=== PATIENT | female | born 1980 | race Caucasian/White ===

== ENCOUNTER 2016-11-14 23:29 | Emergency (ER) | payer MEDICAID ==
[2016-11-15 00:05] VITALS: BP 126/83
[2016-11-15] MEDS ORDERED: CIPROFLOXACIN HCL/DEXAMETH OTIC DROP 7.5 ML AS ONE (01:53)
[2016-11-15] MEDS ORDERED: LIDOCAINE 2% JELLY 5 ML TUBE TOP ONE (01:54)
[2016-11-15] MEDS ORDERED: AZITHROMYCIN 250 MG TABLET PO ONE (01:54)
[2016-11-15] MEDS ORDERED: HYDROCODONE/ACETAMINOPHEN 5-325 MG 6 TAB/DSPK PO PRN (01:56)
--- NOTE | 2016-11-15 01:58 | ER Document Report ---
ED General - General Chief Complaint: Ear Pain Stated Complaint: LEFT EAR PAIN Time Seen by Provider: 11/15/16 00:50 Notes: Patient is a 36-year-old female who presents with 2 days of severe left ear pain. States that she has been trying [id number] medications without any improvement of her pain. States she has had similar symptoms in the past with otitis externa. Described as a severe, constant, throbbing pain. Nothing improves or worsens the pain. She has not seen a primary care doctor regarding today's concerns. Patient states that she feels she may have had a fever but has not recorded this at home. Denies any additional associated constitutional symptoms. TRAVEL OUTSIDE OF THE [place] IN LAST 30 DAYS: No - Related Data Allergies/Adverse Reactions: amoxicillin [Amoxicillin] Allergy (Verified 10/09/15 21:12) Bronchospasm Penicillins Allergy (Verified 10/09/15 21:12) Past Medical History - General Information source: Patient - Social History Smoking Status: Current Every Day Smoker Frequency of alcohol use: Occasional Drug Abuse: None Family History: Reviewed & Not Pertinent, Other - adopted unsure of history Patient has suicidal ideation: No Patient has homicidal ideation: No Pulmonary Medical History: Reports: Hx Asthma Neurological Medical History: Reports: Hx Migraine Renal/ Medical History: Denies: Hx Peritoneal Dialysis GI Medical History: Reports: Hx Gastroesophageal Reflux Disease Musculoskeltal Medical History: Reports Hx Arthritis Skin Medical History: Reports Hx Cellulitis - multiple abscesses Psychiatric Medical History: Reports: Hx Anxiety - panic attacks Traumatic Medical History: Reports: Hx Fractures - ankle and toes Past Surgical History: Reports: Hx Cholecystectomy, Hx Orthopedic Surgery - LEFT ANKLE REPAIR, Hx Tubal Ligation - Immunizations Immunizations up to date: Yes Hx Diphtheria, Pertussis, Tetanus Vaccination: Yes Hx Pneumococcal Vaccination: 01/13/12 Review of Systems - Review of Systems Notes: Constitutional: Negative for fever. HENT: Positive for left ear pain Eyes: Negative for visual changes. Cardiovascular: Negative for chest pain. Respiratory: Negative for shortness of breath. Gastrointestinal: Negative for abdominal pain, vomiting or diarrhea. Genitourinary: Negative for dysuria. Musculoskeletal: Negative for back pain. Skin: Negative for rash. Neurological: Negative for headaches, weakness or numbness. 10 point ROS negative except as marked above and in HPI. Physical Exam - Vital signs Vitals: Temp Pulse Resp BP Pulse Ox 99.2 F 114 H 16 126/83 H 98 11/15/16 00:05 11/15/16 00:05 11/15/16 00:05 11/15/16 00:05 11/15/16 00:05 Interpretation: Tachycardic Notes: PHYSICAL EXAMINATION: GENERAL: Appears to be in significant pain, holding her left ear HEAD: Atraumatic, normocephalic. EYES: sclera anicteric, conjunctiva are normal. ENT: Moist mucous membranes. Purulent expression in the external canal of the left ear precludes visualization of the tympanic membrane. No pain over palpation of the mastoid. Right TM clear. NECK: Normal range of motion LUNGS: Normal work of breathing HEART: 2+ radial pulses bilaterally EXTREMITIES: no pitting or edema. No cyanosis. NEUROLOGICAL: No focal neurological deficits. Moves all extremities spontaneously and on command. PSYCH: Normal mood, normal affect. SKIN: Warm, Dry, normal turgor, no rashes or lesions noted. Course - Re-evaluation Re-evalutation: 11/15/16 01:55 Patient presents with signs and symptoms consistent with an acute otitis externa , pus visibly seen in the external ear canal. There is no pain over the mastoid. She is otherwise nontoxic in appearance, vitals within normal limits, no acute distress. Will start on Ciprodex drops as well as oral azithromycin as patient is penicillin allergic. At this time will discharge with return precautions and follow-up recommendations. Verbal discharge instructions given a the bedside and opportunity for questions given. Medication warnings reviewed. Patient is in agreement with this plan and has verbalized understanding of return precautions and the need for primary care follow-up in the next 24-72 hours. - Vital Signs Vital signs: Temp Pulse Resp BP Pulse Ox 99.2 F 113 H 16 126/83 H 98 11/15/16 00:06 11/15/16 00:06 11/15/16 00:06 11/15/16 00:06 11/15/16 00:06 Discharge - Discharge Clinical Impression: Left otitis externa Qualifiers: Otitis externa type: unspecified type Chronicity: acute Qualified Code(s): H60.502 - Unspecified acute noninfective otitis externa, left ear Condition: Good Disposition: HOME, SELF-CARE Additional Instructions: Please place 2 drops of the Ciprodex solution 3 times daily anterior left ear for the next 7 days. Take azithromycin 250 mg daily for the next 4 days. You may use the viscous lidocaine that she was sent home with as needed for pain. Return if you develop worsening pain, pass out, develop weakness, numbness, confusion, or any other symptoms that are worrisome to you. Prescriptions: Azithromycin 250 mg PO DAILY #4 tablet Referrals: GISELE LEE MD [Primary Care Provider] - Follow up as needed
== END 2016-11-15 02:22 | disposition home or self-care (01) ==
LOC: ER 23:29
DX: H60.502 Unspecified acute noninfective otitis externa, left ear (principal); H92.02 Otalgia, left ear; F17.200 Nicotine dependence, unspecified, uncomplicated
CPT/HCPCS: 99282; Q0144; J3490 ×2

== ENCOUNTER 2017-04-06 23:55 | Emergency (ER) | payer MEDICAID ==
[2017-04-07] MEDS ORDERED: CLINDAMYCIN HCL 150 MG CAPSULE PO ONE (00:43)
[2017-04-07] MEDS ORDERED: LIDOCAINE 2% VISCOUS SOLN 20 ML UDCUP PO ONE (00:44)
[2017-04-07] MEDS ORDERED: IBUPROFEN 800 MG TABLET PO ONE (00:44)
--- NOTE | 2017-04-07 00:46 | ER Document Report ---
ED Oral Problem - General Chief Complaint: Toothache Stated Complaint: TOOTHACHE Time Seen by Provider: 04/07/17 00:29 Mode of Arrival: Ambulatory Information source: Patient Notes: 36-year-old female presents to ED for complaint of dental pain to the upper right gums. Above the tooth #5-8. TRAVEL OUTSIDE OF THE [place] IN LAST 30 DAYS: No - HPI Patient complains to provider of: Toothache Onset: Other - 3 days Quality of pain: Achy, Throbbing Severity: Moderate Pain Level: 3 Associated symptoms: Toothache, Other - Pain and swelling in the gums also Worsened by: Nothing Similar symptoms previously: Yes Recently seen / treated by doctor/dentist: No - Related Data Allergies/Adverse Reactions: amoxicillin [Amoxicillin] Allergy (Verified 10/09/15 21:12) Bronchospasm Penicillins Allergy (Verified 10/09/15 21:12) Past Medical History - General Information source: Patient - Social History Smoking Status: Current Some Day Smoker - 2-3 per week Smoking Education Provided: Yes - 3 min Frequency of alcohol use: Rare Drug Abuse: None Lives with: Family Family History: Arthritis, Other - adopted unsure of history states she knows that they have arthritis and that is all she knows Patient has suicidal ideation: No Patient has homicidal ideation: No - Past Medical History Cardiac Medical History: Reports: None Pulmonary Medical History: Reports: Hx Asthma EENT Medical History: Reports: None Neurological Medical History: Reports: Hx Migraine Endocrine Medical History: Reports: None Renal/ Medical History: Reports: None Malignancy Medical History: Reports: None GI Medical History: Reports: Hx Gastroesophageal Reflux Disease Musculoskeltal Medical History: Reports Hx Arthritis Skin Medical History: Reports Hx Cellulitis - multiple abscesses Psychiatric Medical History: Reports: Hx Anxiety - panic attacks Traumatic Medical History: Reports: Hx Fractures - ankle and toes Infectious Medical History: Reports: None Past Surgical History: Reports: Hx Cholecystectomy, Hx Orthopedic Surgery - LEFT ANKLE REPAIR, Hx Tubal Ligation - Immunizations Immunizations up to date: Yes Hx Diphtheria, Pertussis, Tetanus Vaccination: Yes Hx Pneumococcal Vaccination: 01/13/12 Review of Systems - Review of Systems Constitutional: No symptoms reported EENT: Mouth pain, Dental problem Cardiovascular: No symptoms reported Respiratory: No symptoms reported Gastrointestinal: No symptoms reported Genitourinary: No symptoms reported Female Genitourinary: No symptoms reported Musculoskeletal: No symptoms reported Skin: No symptoms reported Hematologic/Lymphatic: No symptoms reported Neurological/Psychological: No symptoms reported Physical Exam - Vital signs Vitals: Temp Pulse Resp BP Pulse Ox 98.4 F 106 H 17 135/89 H 98 04/07/17 00:11 04/07/17 00:11 04/07/17 00:11 04/07/17 00:11 04/07/17 00:11 Interpretation: Normal - General General appearance: Appears well, Alert - HEENT Head: Normocephalic, Atraumatic Eyes: Normal Pupils: PERRL Ears: Normal External canal: Normal Tympanic membrane: Normal Sinus: Normal Nasal: Other - Small red swollen area to the front of the right nare Mouth/Lips: Caries Mucous membranes: Normal Teeth diagram: 1 - Her entire mouth is full of cavities. She has gingivitis and a lot of pain above these teeth. Pharynx: Normal Neck: Anterior cervical chain - Respiratory Respiratory status: No respiratory distress Chest status: Nontender Breath sounds: Normal Chest palpation: Normal - Cardiovascular Rhythm: Regular Heart sounds: Normal auscultation Murmur: No - Abdominal Inspection: Normal Distension: No distension Bowel sounds: Normal Tenderness: Nontender Organomegaly: No organomegaly - Back Back: Normal, Nontender - Extremities General upper extremity: Normal inspection, Nontender, Normal color, Normal ROM , Normal temperature General lower extremity: Normal inspection, Nontender, Normal color, Normal ROM , Normal temperature, Normal weight bearing. No: Mary's sign - Neurological Neuro grossly intact: Yes Cognition: Normal Orientation: AAOx4 Donn Coma Scale Eye Opening: Spontaneous Donn Coma Scale Verbal: Oriented [place] Coma Scale Motor: Obeys Commands Donn Coma Scale Total: 15 Speech: Normal Motor strength normal: LUE, RUE, LLE, RLE Sensory: Normal - Psychological Associated symptoms: Normal affect, Normal mood - Skin Skin Temperature: Warm Skin Moisture: Dry Skin Color: Normal Course - Re-evaluation Re-evalutation: 04/07/17 01:00 Patient was treated with clindamycin ibuprofen and viscous lidocaine. Patient states she had instant relief with the viscous lidocaine. - Vital Signs Vital signs: Temp Pulse Resp BP Pulse Ox 98.4 F 106 H 17 135/89 H 98 04/07/17 00:11 04/07/17 00:11 04/07/17 00:11 04/07/17 00:11 04/07/17 00:11 Discharge - Discharge Clinical Impression: Pain due to dental caries Condition: Stable Disposition: HOME, SELF-CARE Additional Instructions: TOOTHACHE: Your pain is due to dental decay. The tooth must be repaired in order for you to feel better. You will, therefore, be referred to a dentist. We do not have dentists on the staff at [facility]. Severe swelling or drainage around a tooth usually means a dental abscess. This also requires evaluation and treatment by the dentist, but antibiotics may be prescribed while awaiting dental treatment. You should be rechecked immediately if you develop major swelling of the face, increasing pain, a lump in the jaw or gums, headache, difficulty swallowing, or fever. CLINDAMYCIN: You have been given a prescription for the antibiotic clindamycin. It is often prescribed for infections in the mouth, such as dental infections or abscesses, and for skin infections due to MRSA. It's important that you take all the medication, unless instructed otherwise by your physician. Failure to complete the entire course can result in relapse of your condition. Common side effects of antibiotics include nausea, intestinal cramping, or diarrhea. Women may develop vaginal yeast infections, and babies can get yeast (thrush) in the mouth following the use of antibiotics. Contact your physician if you develop significant side effects from this medication. Allergy to this antibiotic can result in hives, wheezing, faintness, or itching. If symptoms of allergy occur, stop the medication and call the doctor. You have been given viscous lidocaine that you can use for your dental pain every 3-4 hours as needed until you can follow-up with the dentist. Use ibuprofen for your pain. Ibuprofen Ibuprofen is an excellent, safe drug for pain control. In addition, it has potent antiinflammatory effects which are beneficial, especially in the treatment of injuries, arthritis, or tendonitis. It's best to take ibuprofen with food. Persons with ulcer disease or allergy to aspirin should notify their physician of this before taking ibuprofen. Take the medication exactly as prescribed. Don't take additional doses unless instructed to do so by your doctor. If you develop wheezing, shortness of breath, hives, faintness, stomach pain, vomiting, or dark black stools, return for re-evaluation at once. FOLLOW-UP CARE: You have been referred for follow-up care to the dentists listed below. Call the dentists office for an appointment as you were instructed or within the next two days. If you experience worsening or a significant change in your symptoms, notify the physician immediately or return to the Emergency Department at any time for re-evaluation. [facility] [address] [place], [place] Manjinder mornings, by appointment [facility] [address] [place] [address] [facility] [address] [facility] [address] [facility] [address] [email or web address] [address] [place] [address] Friday- 8:00am to 5:00 pm Will see patients from other [facility]. Charges based on income and family size and accepts Medicare, Medicaid, and Insurances Will pull molars [facility] [id number] Hours of Operation 8:00 am - 4:30 pm weekdays The following dental offices accept Medicaid: [facility] Dr. Reeves Dr. Metcalf Dr. Jimenez Dr. Schmitz Yusuf Cuevas, Ari[place], and [place] [facility] Dr. Kidd ([place]) Dr. Olivo ([place]es[place]) [facility] Drs. Leach ([place]) Dr. Romero ([place]) [facility] Dr. Cedeño ([place]) Drs. Cameron and ([place]) Medicaid Care Line Prescriptions: Ibuprofen 800 mg PO Q8HP PRN #20 tablet PRN Reason: Clindamycin HCl [Cleocin 300 mg Capsule] 300 mg PO Q6 #28 capsule Forms: Elevated Blood Pressure, Smoking Cessation Education
[2017-04-07 00:52] VITALS: BP 132/82
== END 2017-04-07 01:00 | disposition home or self-care (01) ==
LOC: ER 23:55
DX: K02.9 Dental caries, unspecified (principal); K08.89 Other specified disorders of teeth and supporting structures; R22.0 Localized swelling, mass and lump, head; F17.200 Nicotine dependence, unspecified, uncomplicated
CPT/HCPCS: 99282; J3490 ×3

== ENCOUNTER 2018-03-08 10:40 | Emergency (ER) | payer MEDICAID ==
[2018-03-08 10:51] VITALS: BP 133/85
[2018-03-08] MEDS ORDERED: BUPIVACAINE HCL 0.5 % INJ/PF 30 ML SDV INJ ONE (11:08)
[2018-03-08] MEDS ORDERED: LIDOCAINE 1% INJ (10 MG/ML) 10 ML MDV INJ ONE (11:08)
[2018-03-08] MEDS ORDERED: CLINDAMYCIN HCL 150 MG CAPSULE PO ONE (11:08)
--- NOTE | 2018-03-08 11:08 | ER Document Report ---
ED ENT - General Mode of Arrival: Ambulatory Information source: Patient TRAVEL OUTSIDE OF THE [place] IN LAST 30 DAYS: No <MARELY LOPEZ - Last Filed: 03/08/18 11:31> <AVA VALENCIA - Last Filed: 03/08/18 11:47> - General Chief Complaint: Abscess Stated Complaint: RIGHT JAW PAIN Time Seen by Provider: 03/08/18 11:00 Notes: 37-year-old female who presents to the emergency department today with complaints of dental pain. Patient states she has a known fractured tooth and she believes the pain is coming from this area. Patient denies any recent fracture or trauma to that tooth. Patient complains of right mouth and jaw swelling. Patient states she has had this pain for 4 days and the subjective swelling for 2 days. Patient states that chewing on the right side of her mouth causes pain. Patient states that it now hurts to swallow but she is not having any difficulty with swallowing or handling her secretions. Patient states she feels hot but has not taken her temperature. Patient denies any drainage into her mouth, nausea, or vomiting. Patient states she does not have a dentist and requests dental follow-up information. (MARELY LOPEZ) - Related Data Allergies/Adverse Reactions: amoxicillin [Amoxicillin] Allergy (Verified 10/09/15 21:12) Bronchospasm Penicillins Allergy (Verified 10/09/15 21:12) Past Medical History - General Information source: Patient - Social History Smoking Status: Current Every Day Smoker Cigarette use (# per day): Yes - "quit today" Lives with: Family Family History: Arthritis, Other - adopted unsure of history states she knows that they have arthritis and that is all she knows Patient has suicidal ideation: No Patient has homicidal ideation: No Pulmonary Medical History: Reports: Hx Asthma Neurological Medical History: Reports: Hx Migraine Renal/ Medical History: Denies: Hx Peritoneal Dialysis GI Medical History: Reports: Hx Gastroesophageal Reflux Disease Musculoskeletal Medical History: Reports Hx Arthritis Skin Medical History: Reports Hx Cellulitis - multiple abscesses Psychiatric Medical History: Reports: Hx Anxiety - panic attacks Traumatic Medical History: Reports: Hx Fractures - ankle and toes Past Surgical History: Reports: Hx Cholecystectomy, Hx Orthopedic Surgery - LEFT ANKLE REPAIR, Hx Tubal Ligation - Immunizations Immunizations up to date: Yes Hx Diphtheria, Pertussis, Tetanus Vaccination: Yes Hx Pneumococcal Vaccination: 01/13/12 <JESSICAMARELY - Last Filed: 03/08/18 11:31> Review of Systems - Review of Systems Constitutional: No symptoms reported EENT: See HPI, Mouth pain, Mouth swelling, Dental problem. denies: Difficulty swallowing Cardiovascular: No symptoms reported Respiratory: No symptoms reported Gastrointestinal: denies: Nausea, Vomiting Genitourinary: No symptoms reported Female Genitourinary: No symptoms reported Musculoskeletal: No symptoms reported Skin: No symptoms reported Hematologic/Lymphatic: No symptoms reported Neurological/Psychological: No symptoms reported -: Yes All other systems reviewed and negative <MARELY LOPEZ - Last Filed: 03/08/18 11:31> Physical Exam <MARELY LOPEZ - Last Filed: 03/08/18 11:31> <AVA VALENCIA - Last Filed: 03/08/18 11:47> - Vital signs Vitals: Temp Pulse Resp BP Pulse Ox 98.0 F 86 16 133/85 H 97 03/08/18 10:49 03/08/18 10:49 03/08/18 10:49 03/08/18 10:49 03/08/18 10:49 - Notes Notes: PHYSICAL EXAM GENERAL: Alert, interacts well. Appears to be in some pain. HEAD: Normocephalic, atraumatic. EYES: Pupils equal, round, and reactive to light. Extraocular movements intact. ENT: Oral mucosa moist, tongue midline. No evidence of Jamari's angina. No evidence of intraoral or extraoral abscess. Bilateral anterior cervical lymphadenopathy, right greater than left. No posterior lymphadenopathy. Tooth #32 is fractured down to the gumline with pulp exposed, this tooth is tender with palpation. No drainage or abscess from this area. No neck swelling appreciated. NECK: Full range of motion. Supple. Trachea midline. LUNGS: No respiratory distress. EXTREMITIES: Moves all 4 extremities spontaneously. NEUROLOGICAL: Alert and oriented x3. Normal speech. PSYCH: Normal affect, normal mood. SKIN: Warm, mild diaphoresis, normal turgor. No rashes or lesions noted. (MARELY LOPEZ) Course <MARELY LOPEZ - Last Filed: 03/08/18 11:31> <AVA VALENCIA - Last Filed: 03/08/18 11:47> - Re-evaluation Re-evalutation: 03/08/18 11:10 No evidence of abscess, there is a dental carry that is significant enough that I am able to see the pulp on this broken tooth, patient denies recent trauma, states that her tooth has been broken ever since he came in. Tooth is very tender to palpation, there is no surrounding erythema or swelling, the swelling underneath the right side of her jaw that the patient mentions is right-sided anterior cervical lymphadenopathy. No evidence of Chanel's angina. No indication for CT scan. Patient will be treated with clindamycin as she is allergic to amoxicillin and penicillin, patient was offered a dental block versus Tessalon Perles, she has accepted a dental block and Tessalon Perles to go home. Dental block will be performed with lidocaine and bupivacaine 50-50 mix and discharged with first dose of clindamycin here. Recommended to follow- up with a dentist as soon as possible. 03/08/18 11:47 Patient was handed a list of local dental clinics. (AVA VALENCIA) - Vital Signs Vital signs: Temp Pulse Resp BP Pulse Ox 98.0 F 86 16 133/85 H 97 03/08/18 10:49 03/08/18 10:49 03/08/18 10:49 03/08/18 10:49 03/08/18 10:49 Procedures - Additional Procedures dental block Additional Procedures: Other - Inferior alveolar dental block performed using a 27-gauge inch and a half long needle, I used the intra-orbital approach and slowly infiltrated 3 mL's of a 50-50 mix of 1% lidocaine and half percent bupivacaine. Patient tolerated this well, on discharge patient was already feeling pain relief. <AVA VALENCIA - Last Filed: 03/08/18 11:47> Discharge <MARELY LOPEZ - Last Filed: 03/08/18 11:31> <AVA VALENCIA - Last Filed: 03/08/18 11:47> - Discharge Clinical Impression: Dental caries extending into pulp Condition: Stable Disposition: HOME, SELF-CARE Additional Instructions: Toothache Your pain is due to dental decay. The tooth must be repaired in order for you to feel better. You will, therefore, be referred to a dentist. Severe swelling or drainage around a tooth usually means a deep dental abscess. This also requires evaluation and treatment by the dentist, but antibiotics may be prescribed while awaiting dental treatment. You should be rechecked immediately if you develop major swelling of the face, increasing pain, a lump in the jaw or gums, headache, or fever. Prescriptions: Benzonatate [Tessalon Perles 100 mg Capsule] 100 mg PO ASDIR PRN #40 capsule PRN Reason: Clindamycin HCl 300 mg PO QID #28 capsule Referrals: TWYLA EDWARDS, [employer] [Primary Care Provider] - Follow up as needed Scribe Attestation: 03/08/18 11:47 I personally performed the services described in the documentation, reviewed and edited the documentation which was dictated to the scribe in my presence, and it accurately records my words and actions. (AVA VALENCIA) Scribe Documentation - Scribe Written by Marlon:: Marlon Husain, 03/08/2018 [id number] acting as scribe for :: Nikki <MARELY LOPEZ - Last Filed: 03/08/18 11:31>
== END 2018-03-08 11:19 | disposition home or self-care (01) ==
LOC: ER 10:40
PROC: 3E0T3BZ Introduction of Anesthetic Agent into Peripheral Nerves and Plexi, Percutaneous Approach (ICD-10-PCS; principal; 2018-03-08)
DX: K02.9 Dental caries, unspecified (principal); K08.89 Other specified disorders of teeth and supporting structures; R22.0 Localized swelling, mass and lump, head; F17.210 Nicotine dependence, cigarettes, uncomplicated; J45.909 Unspecified asthma, uncomplicated
CPT/HCPCS: 99283; 64400; J3490 ×3

== ENCOUNTER 2018-11-14 12:19 | Emergency (ER) | payer MEDICAID ==
[2018-11-14 12:24] VITALS: BP 127/87
[2018-11-14] MEDS ORDERED: CIPROFLOXACIN HCL/DEXAMETH OTIC DROP 7.5 ML AS ONE (12:28)
--- NOTE | 2018-11-14 12:30 | ER Document Report ---
HPI - HPI Time Seen by Provider: 11/14/18 12:28 Pain Level: 3 Notes: Patient is a 38-year-old female with a history of anemia and tobacco abuse who presents complaining of right ear pain that began yesterday. Patient states that her ear feels swollen and is painful. She has noticed some discharge from it. Pain does not radiate. No other recent illness. She is eating and drinking without difficulty. Denies any headache, fever, head injury, neck pain, changes in vision/speech/mentation/hearing, URI, sore throat, chest pain, palpitations, syncope, cough, shortness of breath, wheeze, dyspnea, abdominal pain, nausea/vomiting/diarrhea, urinary retention, dysuria, hematuria, dizziness, or rash. - ROS Systems Reviewed and Negative: Yes All other systems reviewed and negative - REPRODUCTIVE Reproductive: DENIES: : Past Medical History - Social History Smoking Status: Current Every Day Smoker Family History: Arthritis, Other - adopted unsure of history states she knows that they have arthritis and that is all she knows Pulmonary Medical History: Reports: Hx Asthma Neurological Medical History: Reports: Hx Migraine Renal/ Medical History: Denies: Hx Peritoneal Dialysis GI Medical History: Reports: Hx Gastroesophageal Reflux Disease Musculoskeletal Medical History: Reports Hx Arthritis Skin Medical History: Reports Hx Cellulitis - multiple abscesses Psychiatric Medical History: Reports: Hx Anxiety - panic attacks Traumatic Medical History: Reports: Hx Fractures - ankle and toes Past Surgical History: Reports: Hx Cholecystectomy, Hx Orthopedic Surgery - LEFT ANKLE REPAIR, Hx Tubal Ligation - Immunizations Immunizations up to date: Yes Hx Diphtheria, Pertussis, Tetanus Vaccination: Yes Hx Pneumococcal Vaccination: 01/13/12 Vertical Provider Document - CONSTITUTIONAL Agree With Documented VS: Yes Notes: PHYSICAL EXAMINATION: GENERAL: Well-appearing, well-nourished and in no acute distress. A&Ox4. Answers questions appropriately. Moves comfortably w/o notable distress HEAD: Atraumatic, normocephalic. EYES: Pupils equal round and reactive to light, extraocular movements intact, sclera anicteric, conjunctiva are normal. ENT: Rt EAC tender, scant discharge w/moderate significant swelling/occlusion. Lt EAC wnl. + Tenderness to tragus rt. No mastoid tenderness bilaterally. TM's intact b/l without erythema, fluid, or perforation. Nares patent and without discharge. oropharynx no erythema without exudates. No tonsilar hypertrophy without erythema or exudate. No palatine shift. Uvula midline. No tongue protrusion. No drooling, hoarseness, or airway compromise. Moist mucous membranes. No sinus tenderness. NECK: Normal range of motion, supple without lymphadenopathy. No rigidity/meningismus. LUNGS: Breath sounds clear to auscultation bilaterally and equal. No wheezes rales or rhonchi. No retractions HEART: Regular rate and rhythm without murmurs, rubs, gallops. NEUROLOGICAL: Normal speech, normal gait. PSYCH: Normal mood, normal affect. SKIN: Warm, Dry, normal turgor, no rashes or lesions noted. - INFECTION CONTROL TRAVEL OUTSIDE OF THE [place] IN LAST 30 DAYS: No Course - Re-evaluation Re-evalutation: 11/14/18 Patient is an afebrile, well-hydrated, 38-year-old female who presents with acute otitis externa of the right ear. Vitals are acceptable without significant tachycardia, tachypnea, or hypoxia. PE is otherwise unremarkable. Patient is nontoxic-appearing and is tolerating p.o. without difficulty. Ear wick was placed successfully without any complications and Ciprodex applied. No further work-up warranted. Low suspicion for any sepsis, meningitis, severe dehydration, respiratory compromise, mastoiditis, or other systemic emergent condition at this time. Patient is aware that condition can change from initial presentation and she needs to monitor symptoms closely and seek medical attention with any acute changes. Recheck with your PCM in 3 to 5 days. Consider consult with ENT. Return to the ED with any other worsening/concerning symptoms. Patient is in agreement. - Vital Signs Vital signs: Temp Pulse Resp BP Pulse Ox 98.0 F 98 16 127/87 H 95 11/14/18 12:22 11/14/18 12:22 11/14/18 12:22 11/14/18 12:22 11/14/18 12:22 Procedures - Additional Procedures Ear wick placement Additional Procedures: Other - Ear wick was placed to the right ear successfully without any complications and Ciprodex applied. Patient tolerated procedure well. Discharge - Discharge Clinical Impression: Acute otitis externa of right ear Qualifiers: Otitis externa type: unspecified type Qualified Code(s): H60.501 - Unspecified acute noninfective otitis externa, right ear Condition: Stable Disposition: HOME, SELF-CARE Instructions: Using Ear Drops with a Wick ([facility]), Otitis Externa ([facility]) Additional Instructions: Maintain adequate fluid intake Take meds as directed Avoid swimming tylenol/ibuprofen as needed Avoid Q-tips in the ears over the counter cold medication as needed for symptoms F/u: with your PCM in 3-5 days for a recheck Consider consult with ENT Return to the ED with any fever, dizziness, tinnitus, headaches, worsening pain, chest pain, palpitations, syncope, neck pain/stiffness, shortness of breath, wheezing, drooling, trouble swallowing/breathing, abdominal pain, n/v/d, rash, or worsening/concerning symptoms otherwise. Prescriptions: Ciprofloxacin HCl/Dexameth [Ciprodex Otic Suspension 7.5 ml Bottle] 4 drop OT BID #1 bottle Forms: Elevated Blood Pressure, Smoking Cessation Education Referrals: TWYLA EDWARDS, [employer]-C [Primary Care Provider] - Follow up as needed ANUJA PEMBERTON DO [ASSOCIATE] - Follow up as needed
== END 2018-11-14 12:42 | disposition home or self-care (01) ==
LOC: ER 12:19
DX: H60.501 Unspecified acute noninfective otitis externa, right ear (principal); H92.01 Otalgia, right ear; F17.200 Nicotine dependence, unspecified, uncomplicated; J45.909 Unspecified asthma, uncomplicated
CPT/HCPCS: 99282; J3490

== ENCOUNTER 2018-12-11 20:49 | Emergency (ER) | payer MEDICAID ==
[2018-12-11] MEDS ORDERED: CIPROFLOXACIN HCL/DEXAMETH OTIC DROP 7.5 ML AS ONE (22:52)
--- NOTE | 2018-12-11 23:09 | ER Document Report ---
HPI - HPI Time Seen by Provider: 12/11/18 22:36 Pain Level: 2 Notes: Patient is a 38-year-old female no significant past medical history who presents complaining of left ear pain and swelling over the past couple days. Patient states that she did notice a bump behind her ear when she was picking at. Patient states that her ear has been pushed away from her head which has produced a gap larger than her normal. Patient states that she has pain on the inside of her ear as well. Pt does note an occasional headache. This is not the worst [place] of her life and did not start as a 'thunderclap.' She is otherwise able to eat and drink without difficulty. She is urinating normally. No other concerns or complaints. Denies any fever, neck pain, changes in vision/speech/mentation/hearing, URI, sore throat, chest pain, palpitations, syncope, cough, shortness of breath, wheeze, dyspnea, abdominal pain, nausea/vomiting/diarrhea, urinary retention, dysuria, hematuria, or rash. - ROS Systems Reviewed and Negative: Yes All other systems reviewed and negative - REPRODUCTIVE Reproductive: DENIES: : Past Medical History - Social History Smoking Status: Unknown if Ever Smoked Family History: Arthritis, Other - adopted unsure of history states she knows that they have arthritis and that is all she knows Pulmonary Medical History: Reports: Hx Asthma Neurological Medical History: Reports: Hx Migraine Renal/ Medical History: Denies: Hx Peritoneal Dialysis GI Medical History: Reports: Hx Gastroesophageal Reflux Disease Musculoskeletal Medical History: Reports Hx Arthritis Skin Medical History: Reports Hx Cellulitis - multiple abscesses Psychiatric Medical History: Reports: Hx Anxiety - panic attacks, Hx Depression - anxiety Traumatic Medical History: Reports: Hx Fractures - ankle and toes Past Surgical History: Reports: Hx Cholecystectomy, Hx Orthopedic Surgery - LEFT ANKLE REPAIR, Hx Tubal Ligation - Immunizations Immunizations up to date: Yes Hx Diphtheria, Pertussis, Tetanus Vaccination: Yes Hx Pneumococcal Vaccination: 01/13/12 Vertical Provider Document - CONSTITUTIONAL Agree With Documented VS: No - HR 80 during exam Notes: PHYSICAL EXAMINATION: GENERAL: Well-appearing, well-nourished and in no acute distress. A&Ox4. Answers questions appropriately. Moves comfortably w/o notable distress HEAD: Atraumatic, normocephalic. EYES: Pupils equal round and reactive to light, extraocular movements intact, sclera anicteric, conjunctiva are normal. ENT: Lt EAC tender, no discharge w. moderate swelling/occlusion. Rt EAC wnl. Lt auricle with mild swelling. + mild erythema and mild tenderness left mastoid. TM's intact b/l without erythema, fluid, or perforation. Nares patent and without discharge. oropharynx no erythema without exudates. No tonsilar hypertrophy without erythema or exudate. No palatine shift. Uvula midline. No tongue protrusion. No drooling, hoarseness, or airway compromise. Moist mucous membranes. No sinus tenderness. NECK: Normal range of motion, supple without lymphadenopathy. No rigidity/meningismus. LUNGS: Breath sounds clear to auscultation bilaterally and equal. No wheezes rales or rhonchi. No retractions HEART: Regular rate and rhythm without murmurs, rubs, gallops. NEUROLOGICAL: Normal speech, normal gait. PSYCH: Normal mood, normal affect. SKIN: Warm, Dry, normal turgor, no rashes or lesions noted. - INFECTION CONTROL TRAVEL OUTSIDE OF THE [place] IN LAST 30 DAYS: No Course - Re-evaluation Re-evalutation: 12/11/18 23:08 Reviewed with radiology who recommends CT head with to further evaluate the mastoid. 12/12/18 00:18 Patient is an afebrile, well-hydrated, 38-year-old female who presents with acute otitis externa of the left ear and possible very mild cellulitis associated posterior auricle. Vitals are acceptable without significant tachycardia, tachypnea, or hypoxia. PE is otherwise unremarkable. Patient is nontoxic-appearing and is tolerating p.o. without difficulty. CT scan unremarkable. Ear wick was placed successfully without any complications and Ciprodex applied. No further work-up warranted. Low suspicion for any sepsis, meningitis, severe dehydration, respiratory compromise, mastoiditis, or other systemic emergent condition at this time. Patient is aware that condition can change from initial presentation and she needs to monitor symptoms closely and seek medical attention with any acute changes. Recheck with your PCM in 3 to 5 days. Consider consult with ENT. Return to the ED with any other worsening/concerning symptoms. Patient is in agreement. - Vital Signs Vital signs: Temp Pulse Resp BP Pulse Ox 98.7 F 107 H 20 133/84 H 99 12/11/18 21:17 12/11/18 21:17 12/11/18 21:17 12/11/18 21:17 12/11/18 21:17 Procedures - Additional Procedures Ear wick placement Additional Procedures: Other - Ear wick was placed successfully without any complications and Ciprodex applied Discharge - Discharge Clinical Impression: Acute otitis externa of left ear Qualifiers: Otitis externa type: unspecified type Qualified Code(s): H60.502 - Unspecified acute noninfective otitis externa, left ear Condition: Stable Disposition: HOME, SELF-CARE Instructions: Using Ear Drops with a Wick ([facility]), Otitis Externa ([facility]) Additional Instructions: Maintain adequate fluid intake Take meds as directed tylenol/ibuprofen as needed Avoid Q-tips in the ears over the counter cold medication as needed for symptoms F/u: with your PCM in 3-5 days for a recheck Consider consult with ENT Return to the ED with any fever, dizziness, tinnitus, headaches, worsening pain, chest pain, palpitations, syncope, neck pain/stiffness, shortness of breath, wheezing, drooling, trouble swallowing/breathing, abdominal pain, n/v/d, rash, or worsening/concerning symptoms otherwise. Prescriptions: Clindamycin HCl [Cleocin 300 mg Capsule] 300 mg PO TID #30 capsule Forms: Elevated Blood Pressure Referrals: RENATA SANDERS FNP-C [Primary Care Provider] - Follow up as needed ANUJA PEMBERTON DO [ASSOCIATE] - Follow up as needed
--- NOTE | 2018-12-12 00:10 | RADIOLOGY REPORT (SQ) ---
EXAM DESCRIPTION: [facility]: CT HEAD WITH IV CONTRAST CLINICAL HISTORY: 38 years Female; assess for left mastoiditis. ORDER PER CONSULT BETWEEN HCP RADIOLOGIST TECHNIQUE: CT head with intravenous contrast All CT scans at this facility use dose modulation, iterative reconstruction, and/or weight based dosing when appropriate to reduce radiation dose to as low as reasonably achievable. COMPARISON: None. FINDINGS: Cobian matter, white matter, ventricles, and cisterns are within normal limits. No enhancing intracranial masses. No focal hematoma. Visualized portions of paranasal sinuses and mastoids are clear. No acute soft tissue edema in the visualized portions of the face and scalp. No acute fractures. IMPRESSION: 1. Normal CT of the brain with contrast. 2. No evidence for mastoiditis.
[2018-12-12 00:38] VITALS: BP 117/83
== END 2018-12-12 00:36 | disposition home or self-care (01) ==
LOC: ER 20:49
DX: H60.502 Unspecified acute noninfective otitis externa, left ear (principal); R22.0 Localized swelling, mass and lump, head; Z90.49 Acquired absence of other specified parts of digestive tract; Z98.51 Tubal ligation status
CPT/HCPCS: 99283; 70460; J3490